=== PATIENT | female | born 1975 | race African-American/Black ===

== ENCOUNTER 2024-01-08 22:26 | Emergency (ER) | payer MEDICAID, OTHER ==
[~2024-01-08] VITALS: Ht 175.3 cm; Wt 114.0 kg
[~2024-01-08 22:26] MED LIST: PHEN100C4; TOPI15CA
[2024-01-08 23:04] VITALS: O2SAT 98
[2024-01-08] MEDS: MIDAZOLAM HCL 2 MG/2 ML VIAL IM ONE (23:04)
[2024-01-08] MEDS: SODIUM CHLORIDE 0.9% 1,000 ML IV ONE (23:05)
[2024-01-08 23:18] LABS: HEMATOCRIT. 38.2 % (36.0-48.0); HEMOGLOBIN. 12.5 g/dL (12.0-16.0); MEAN CORPUSCULAR HEMOGLOBIN 29.5 pg (28.0-32.0); MEAN CORPUSCULAR HGB CONC 32.6 g/dL (31.0-37.0); MEAN CORPUSCULAR VOLUME 90.4 fL (81.0-99.0); PLATELET 293 x1000/uL (130-400); RED BLOOD CELL COUNT 4.23 mill/uL (4.2-5.4); RED CELL DISTRIBUTION WIDTH 18.8 % (11.6-14.6); WHITE BLOOD COUNT 13.6 x1000/uL (4.5-11.0)
[2024-01-08 23:23] LABS: DIFFERENTIAL COMMENT 1
[2024-01-08 23:29] LABS: ALANINE AMINOTRANSFERASE 16 IU/L (10-49); ALBUMIN 4.5 g/dL (3.2-4.8); ASPARTATE AMINOTRANSFERASE 34 IU/L (<34); BILIRUBIN TOTAL 0.2 mg/dL (0.1-1.0); CALCIUM 8.9 mg/dL (8.7-10.4); CARBON DIOXIDE 21 mEq/L (21-32); CHLORIDE 105 mEq/L (98-107); CREATINE KINASE 493 IU/L (34-145); CREATININE 0.8 mg/dL (0.6-1.0); GLUCOSE 154 mg/dL (70-105); PROTEIN TOTAL 8.2 g/dL (6.0-8.3); SODIUM 135 mEq/L (136-145); UREA NITROGEN BLOOD 6 mg/dL (9-23)
[2024-01-08 23:32] LABS: ETHANOL BLOOD < 10 mg/dL (<10)
[2024-01-08 23:38] LABS: LACTIC ACID 4.4 mmol/L (0.4-2.0)
[2024-01-09 00:26] LABS: PLATELET ESTIMATE NORMAL
[2024-01-09 01:16] LABS: CLARITY URINE CLEAR (CLEAR); COLOR URINE RED (YELLOW); GLUCOSE URINE NEGATIVE (NEGATIVE); KETONES URINE 1+ (NEGATIVE); LEUKOCYTE ESTERASE URINE TRACE (NEGATIVE); NITRITE URINE NEGATIVE (NEGATIVE); OCCULT BLOOD URINE 3+ (NEGATIVE); PROTEIN URINE TRACE (NEGATIVE); UROBILINOGEN URINE 0.2 E.U./dL (0.2-1.0)
[2024-01-09 01:27] LABS: *AMPHETAMINES SCREEN URINE NEGATIVE (NEGATIVE); *BARBITURATES SCREEN URINE NEGATIVE (NEGATIVE); *BENZODIAZEPINES SCREEN URINE PRESUMPTIVE POSITIVE (NEGATIVE); *COCAINE SCREEN URINE NEGATIVE (NEGATIVE); CANNABINOID URINE SCREEN NEGATIVE (NEGATIVE); ECSTASY MDMA SCREEN URINE NEGATIVE (NEGATIVE); METHADONE URINE SCREEN Neg (NEGATIVE); OPIATES URINE SCREEN NEGATIVE (NEGATIVE); PHENCYCLIDINE URINE SCREEN NEGATIVE (NEGATIVE); WBC URINE NONE SEEN /hpf (0-2)
[2024-01-09 01:28] LABS: BACTERIA URINE TRACE; SQUAMOUS EPITHELIAL CELL URINE FEW /lpf (RARE/1+)
[2024-01-09] MEDS ORDERED: SODIUM CHLORIDE 0.9% 1,000 ML IV NR (02:00)
[2024-01-09 02:06] LABS: HCG SCREEN NEGATIVE
[2024-01-09] MEDS: LIDOCAINE HCL 1% 20ML VIAL (Pyxis) INJ INFIL ONE (03:55)
[2024-01-09] MEDS: ACETAMINOPHEN 325MG TABLET PO ONE (03:55)
[2024-01-09] MEDS: TOPIRAMATE 100MG TABLET PO ONE (05:39)
[2024-01-09] MEDS: METOCLOPRAMIDE HCL 10MG/2ML VIAL IV ONE (05:40)
[2024-01-09] MEDS ORDERED: TOPA25 MT (05:53)
[2024-01-09 05:54] VITALS: BP 121/60; PULSE 60; RESP 18; TEMP 98.4
[2024-01-09] MEDS ORDERED: ACET-2708 MT (05:54)
== END 2024-01-09 07:59 | disposition home or self-care (01) ==
LOC: ER 22:26
DX: S01.512A Laceration without foreign body of oral cavity, initial encounter (principal); R56.9 Unspecified convulsions; F11.90 Opioid use, unspecified, uncomplicated; X58.XXXA Exposure to other specified factors, initial encounter; Y93.89 Activity, other specified; Y92.89 Other specified places as the place of occurrence of the external cause; Y99.8 Other external cause status
CPT/HCPCS: 80053; 80320; 82550; 84703; 83605 ×2; 85025; 36415; 96361; 96372; 99285; 80305; 81003; 70450; 96374; J2250; J7030; J3490; J2765; G0480